=== PATIENT | female | born 1990 | race Caucasian/White ===

== ENCOUNTER 2017-04-13 13:17 | Emergency (ER) | payer OTHER ==
[~2017-04-13] VITALS: Ht 167.6 cm; Wt 95.0 kg
[2017-04-13 13:23] VITALS: Ht 167.6 cm; Wt 95.0 kg
[2017-04-13 14:07] LABS: ADD SCAN DIFF NO
[2017-04-13 14:08] LABS: BASOPHILS % 0.3 % (0.0-2.0); EOSINOPHILS # 0.1 10^3/ul (0.0-0.5); EOSINOPHILS % 1.3 % (0.0-7.0); HEMOGLOBIN 11.4 g/dl (12.0-16.0); LYMPHOCYTES # 1.6 10^3/ul (0.8-2.9); LYMPHOCYTES % 15.1 % (15.0-51.0); MEAN CORPUSCULAR HEMOGLOBIN 24.6 pg (29.0-33.0); MEAN CORPUSCULAR HGB CONC 30.8 g/dl (32.0-37.0); MEAN CORPUSCULAR VOLUME 79.9 fl (82.0-101.0); MEAN PLATELET VOLUME 9.5 fl (7.4-10.4); MONOCYTE # 0.9 10^3/ul (0.3-0.9); MONOCYTES % 7.9 % (0.0-11.0); NEUTROPHIL # 8.1 10^3/ul (1.6-7.5); NEUTROPHILS % 74.8 % (39.0-77.0); PLATELET COUNT 389 10^3/UL (140-415); RED BLOOD COUNT 4.63 10^6/ul (4.20-5.40); RED CELL DISTRIBUTION WIDTH 15.9 % (11.5-14.5); WHITE BLOOD COUNT 10.8 10^3/ul (4.8-10.8)
[2017-04-13 14:34] LABS: ALBUMIN 4.4 g/dl (3.3-4.9)
[2017-04-13 14:35] LABS: CHLORIDE 115 mmol/L (97-110); POTASSIUM 4.1 mmol/L (3.5-5.1); SODIUM 143 mmol/L (135-144)
[2017-04-13 14:37] LABS: ALBUMIN/GLOBULIN RATIO 1.22; ALKALINE PHOSPHATASE 64 IU/L (42-121); ASPARTATE AMINO TRANSFERASE 31 IU/L (15-46); BILIRUBIN,INDIRECT 0.1 mg/dl (0-1.1); BILIRUBIN,TOTAL 0.1 mg/dl (0.2-1.3); BLOOD UREA NITROGEN 11 mg/dl (7-20)
[2017-04-13 14:38] LABS: CALCIUM 9.4 mg/dl (8.4-10.2); GLUCOSE 91 mg/dl (70-220)
[2017-04-13 14:40] LABS: ETHANOL < 10.0 mg/dl; SALICYLATE < 1.0 mg/dl (5.0-30.0)
[2017-04-13 14:49] LABS: ACETAMINOPHEN < 10.0 ug/ml (10.0-30.0); CARBON DIOXIDE 20 mmol/L (21-31)
[2017-04-13 14:50] LABS: ALANINE AMINOTRANSFERASE 36 IU/L (13-69); ANION GAP 12 (8-16); CREATININE 0.67 mg/dl (0.44-1.00)
--- NOTE | 2017-04-13 14:52 | ERD ---
ER Documentation Chief Complaint Date/Time DATE: 04/13/17 TIME: 1342 Chief Complaint Per patient she took 27, 800 mgs of Motrin and other pills HPI 26-year-old female presents the emergency department after taking at least 20 some odd tablets of Motrin. She states she tried to get high with this. She denies feeling suicidal. In fact she has no complaints at all at this time. She reports no abdominal pain. She reports no difficulty urinating. She has no other complaints. ROS All systems reviewed and are negative except as per history of present illness. Medications Home Meds No Active Prescriptions or Reported Meds Allergies Allergies: Coded Allergies: No Known Allergy (Unverified , 04/13/17) PMhx/Soc History of Surgery: No Anesthesia Reaction: No Hx Neurological Disorder: No Hx Respiratory Disorders: No Hx Cardiac Disorders: No Hx Psychiatric Problems: No Hx Miscellaneous Medical Probl: No Hx Alcohol Use: No Hx Substance Use: No Hx Tobacco Use: No Smoking Status: Unknown if ever smoked FmHx Noncontributory for chief complaint Physical Exam Vitals Vital Signs Date Time Temp Pulse Resp B/P Pulse Ox O2 Delivery O2 Flow Rate FiO2 04/13/17 13:23 97.5 86 20 129/76 98 Physical Exam GENERAL: The patient is well developed and appropriate for usual state of health in no apparent distress HEENT: Pupils equal, round, and reactive to light. EOMI. There is no scleral icterus. NECK: C-spine is soft and supple, there is no meningismus. There is no cervical lymphadenopathy. LUNGS: Clear to auscultation bilaterally. There are no rales, wheezes or rhonchi. HEART: Regular rate and rhythm, no murmurs, clicks, rubs or gallops. ABDOMEN: Soft, non-tender, non-distended. There are bowel sounds in all four quadrants. No rebound or guarding. EXTREMITIES: There is no peripheral cyanosis or edema. No focal swelling or erythema. NEURO: The patient moves all four extremities with 5/5 strength. Cranial nerves II - XII are intact. Normal gait. Alert and oriented SKIN: There is no apparent rash or petechiae. HEME/LYMPHATIC: There is no evidence of excessive bruising or lymphedema. PSYCHIATRIC: The patient does not appear anxious or depressed. Patient denies suicidal thoughts Result Diagram: 04/13/17 1354 04/13/17 1354 Results 24 hrs Laboratory Tests Test 04/13/17 13:54 White Blood Count 10.810^3/ul Red Blood Count 4.6310^6/ul Hemoglobin 11.4g/dl Hematocrit 37.0% Mean Corpuscular Volume 79.9fl Mean Corpuscular Hemoglobin 24.6pg Mean Corpuscular Hemoglobin Concent 30.8g/dl Red Cell Distribution Width 15.9% Platelet Count 81255^3/UL Mean Platelet Volume 9.5fl Neutrophils % 74.8% Lymphocytes % 15.1% Monocytes % 7.9% Eosinophils % 1.3% Basophils % 0.3% Nucleated Red Blood Cells % 0.0/100WBC Neutrophils # 8.110^3/ul Lymphocytes # 1.610^3/ul Monocytes # 0.910^3/ul Eosinophils # 0.110^3/ul Basophils # 0.010^3/ul Nucleated Red Blood Cells # 0.010^3/ul Sodium Level 143mmol/L Potassium Level 4.1mmol/L Chloride Level 115mmol/L Carbon Dioxide Level 21mmol/L Anion Gap 11 Blood Urea Nitrogen 11mg/dl Creatinine 0.66mg/dl Glucose Level 91mg/dl Calcium Level 9.4mg/dl Total Bilirubin 0.1mg/dl Direct Bilirubin 0.00mg/dl Indirect Bilirubin 0.1mg/dl Aspartate Amino Transf (AST/SGOT) 31IU/L Alanine Aminotransferase (ALT/SGPT) 35IU/L Alkaline Phosphatase 64IU/L Total Protein 8.0g/dl Albumin 4.4g/dl Globulin 3.60g/dl Albumin/Globulin Ratio 1.22 Salicylates Level < 1.0mg/dl Acetaminophen Level < 10.0ug/ml Ethyl Alcohol Level < 10.0mg/dl Procedures/MDM Patient was taken to a room, seen and evaluated. Comfort measures were initiated. Diagnostic tests were ordered and reviewed. REEVALUATION: Patient remained comfortable and stable in the emergency department. She continued to deny suicidal or homicidal thoughts. [employer]KIN-year-old female presents to the emergency department after a nontoxic ingestion. At this time, patient shows no signs or symptoms of significant toxicologic overdose in any way. From a psychiatric standpoint, patient shows no signs of high-risk psychiatric symptoms. Patient appears to be clinically well and appropriate for outpatient care. Departure Diagnosis: Primary Impression: Intentional drug overdose Condition: Stable Patient Instructions: Overdose, Intentional (Adult) EVELIN ÁLVAREZ April 13, 2017 14:52
[2017-04-13 16:05] VITALS: BP 113/65; PULSE 80; RESP 19; TEMP 97.9
== END 2017-04-13 16:07 | disposition home or self-care (01) ==
LOC: E/R 13:17 → EDSEX 13:17 → E/R 16:07
DX: T39.312A Poisoning by propionic acid derivatives, intentional self-harm, initial encounter (principal); R40.2142 Coma scale, eyes open, spontaneous, at arrival to emergency department; R40.2252 Coma scale, best verbal response, oriented, at arrival to emergency department; R40.2362 Coma scale, best motor response, obeys commands, at arrival to emergency department
CPT/HCPCS: 36415; 80053; 80306; 85025; 99283